=== PATIENT | male | born 1975 | race Caucasian/White ===

== ENCOUNTER → 2017-11-24 12:00 | Outpatient (REF) | payer OTHER, SELFPAY | LOC: LAB 12:00 | PROVIDERS: Visit Provider Nurse Practitioner Family | DX: J01.00 Acute maxillary sinusitis, unspecified (principal); J02.9 Acute pharyngitis, unspecified; R05 Cough | CPT/HCPCS: 88305 ==

== ENCOUNTER 2023-09-07 07:40 | Outpatient (CLI) | payer OTHER, SELFPAY ==
[2023-09-07 19:10] LABS: Alanine Aminotransferase 24 U/L (12-78); Albumin Level 4.4 g/dl (3.5-5.0); Alkaline Phosphatase 71 U/L (38-126); Anion Gap 8.9 mEq/L (5-15); Aspartate Amino Transferase 32 U/L (17-59); Bilirubin,Total 0.3 mg/dl (0.2-1.3); Blood Urea Nitrogen 14 mg/dl (9-20); Carbon Dioxide 29 mmol/L (22.0-30.0); Chloride 103 mmol/L (98-107); Chol/HDL Ratio 2.8 (1-3.5); Cholesterol 171 mg/dl (140-200); Estimated Glomerular Filt Rate 103 ml/min (>60); GFR (African American) 124 ML/MIN (>60); Globulin 2.2 g/dL (1.3-3.2); Glucose 95 mg/dl (74-100); HDL Cholesterol 62 mg/dl (40-60); Potassium 3.9 mmoL/L (3.5-5.1); Sodium 137 mmol/L (136-145); Total Protein,Serum 6.6 g/dl (6.3-8.2); Triglycerides 95 mg/dl (30-150); VLDL Cholesterol 19 mg/dL (0-40)
[2023-09-07 19:16] LABS: Basophils % 0.7 % (0.1-2.0); Eosinophils # 0.1 K/mm3 (0.0-0.4); Eosinophils % 2.1 % (0.1-12.0); Hematocrit 39.4 % (42.0-52.0); Hemoglobin 12.9 g/dL (14.1-18.0); Lymphocytes # 2.3 K/mm3 (0.7-4.5); Lymphocytes % 44.1 % (10-50); Mean Corpuscular HGB Conc 32.8 g/dL (31.8-35.4); Mean Corpuscular Volume 88.6 fl (80-94); Mean Platelet Volume 7.9 fl (7.4-10.4); Monocytes # 0.3 K/mm3 (0.1-1.0); Monocytes % 6.6 % (1.7-9.3); Neutrophils # 2.4 K/mm3 (1.8-7.8); Neutrophils % 46.6 % (37.0-80.0); Platelet Count 208 K/mm3 (142-424); Red Blood Count 4.45 M/mm3 (4.60-6.20); Red Cell Distribution Width 13.6 % (11.5-17.5); White Blood Count 5.2 K/mm3 (4.8-10.8)
[2023-09-07 19:24] LABS: Direct LDL Cholesterol 86.78 mg/dL (100-129)
[2023-09-07 19:43] LABS: Prostate Specific Ag Screen 0.5 ng/ml (0.0-4.0); Thyroid Stimulating Hormone 1.28 uIU/mL (0.465-4.68)
== END 2023-09-07 23:59 ==
LOC: LAB.DROPOF 09-08 07:41
PROVIDERS: PCP Family Medicine; Visit Provider Family Medicine
DX: R05.9 Cough, unspecified (principal); R09.82 Postnasal drip; J34.89 Other specified disorders of nose and nasal sinuses; H92.02 Otalgia, left ear; R68.83 Chills (without fever); Z12.5 Encounter for screening for malignant neoplasm of prostate
CPT/HCPCS: 80053; 80061; 84443; 85025; G0103

== ENCOUNTER 2024-09-26 09:17 | Emergency (ER) | payer OTHER, SELFPAY ==
[2024-09-26] VITALS (9 sets, daily range): BP systolic 156–209; BP diastolic 106–137; PULSE 70–97; RESP 18–24; TEMP 36.8; O2SAT 96–99; BMI 22.0
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
--- NOTE | 2024-09-26 09:35 | PC.NURSE ---
Harjeet Santana, pts. uncle, contacted per pt. request.
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
[2024-09-26] MEDS: FENTANYL 250MCG/5ML VIAL 50 MCG IV ×2 (09:46→10:26)
[2024-09-26 09:48] LABS: Basophils # 0.1 K/mm3 (0-0.2); Basophils % 0.9 % (0.1-2.0); Eosinophils # 0.2 K/mm3 (0.0-0.4); Hematocrit 51.1 % (42.0-52.0); Hemoglobin 17.2 g/dL (14.1-18.0); Lymphocytes # 4.7 K/mm3 (0.7-4.5); Lymphocytes % 57.4 % (10-50); Mean Corpuscular HGB Conc 33.7 g/dL (31.8-35.4); Mean Corpuscular Hemoglobin 29.4 pg (27.0-31.2); Mean Corpuscular Volume 87.2 fl (80-94); Mean Platelet Volume 9.7 fl (7.4-10.4); Monocytes # 0.6 K/mm3 (0.1-1.0); Monocytes % 6.7 % (1.7-9.3); Neutrophils # 2.7 K/mm3 (1.8-7.8); Neutrophils % 32.9 % (37.0-80.0); Platelet Count 352 K/mm3 (142-424); Red Blood Count 5.86 M/mm3 (4.60-6.20); Red Cell Distribution Width 12.4 % (11.5-17.5); White Blood Count 8.2 K/mm3 (4.8-10.8)
[2024-09-26] MEDS: LACTATED RINGERS 1000ML 1,000 ML 999 ML IV (09:51)
[2024-09-26] MEDS: TET/DIPHTH/PERT-ADULT 0.5ML SYRINGE 0.5 ML IM (09:52)
[2024-09-26 09:54] LABS: Alanine Aminotransferase 28 U/L (12-78); Albumin Level 5.4 g/dl (3.5-5.0); Albumin/Globulin Ratio 1.9 (1.1-1.8); Alkaline Phosphatase 80 U/L (38-126); Anion Gap 18.6 mEq/L (5-15); Aspartate Amino Transferase 56 U/L (17-59); Bilirubin,Total 1.2 mg/dl (0.2-1.3); Blood Urea Nitrogen 18 mg/dl (9-20); Calcium 9.9 mg/dl (8.4-10.2); Carbon Dioxide 27 mmol/L (22.0-30.0); Chloride 97 mmol/L (98-107); Creatinine Clearance Estimated 90 mL/min (50-200); Estimated Glomerular Filt Rate 89 ml/min (>60); GFR (African American) 108 ML/MIN (>60); Globulin 2.8 g/dL (1.3-3.2); Glucose 194 mg/dl (74-100); Potassium 4.6 mmoL/L (3.5-5.1); Sodium 138 mmol/L (136-145); Total Protein,Serum 8.2 g/dl (6.3-8.2)
[2024-09-26 10:02] LABS: MANUAL DIFFERENTIAL MANUAL DIFFERENTIAL (MANUAL DIFF)
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
--- NOTE | 2024-09-26 10:10 | PC.NURSE ---
IS SPEAKING TO WON WADE MD AT THIS TIME ABOUT PT TRANSFER AND STATUS OF PT
[2024-09-26 10:14] LABS: Carboxyhemoglobin 0.3 (0.0-5.0)
--- NOTE | 2024-09-26 10:14 | PC.NURSE ---
of transfer center called and states the accepting is and the number for report to the ER is [phone]
[2024-09-26 10:15] LABS: ABG Base Excess 1.7 mmol/L (-2.4-2.3); ABG HCO3 26.6 mmhg (22.0-26.0); ABG PCO2 44.8 mmhg (35.0-45.0); ABG PH 7.39 mmol/L (7.35-7.45)
[2024-09-26 10:16] LABS: ABG Oxygen Saturation 97 % (90-100); Allen's Test acceptable; Oxygen room air %; Source Right Radial
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
[2024-09-26 10:38] LABS: Lymphocytes % 62 % (10-50); Monocytes % 5 % (2-9); Neutrophils % 33 % (42-76); Platelet Estimate Normal; RBC Morphology Normal; Total Cells Counted 100
[2024-09-26 10:39] LABS: HIV Combo NEGATIVE (Negative)
--- NOTE | 2024-09-26 10:39 | PC.NURSE ---
report given to Martine VALERO
[2024-09-26 10:47] LABS: Hepatitis C Ab Qual. W/ RFX NEGATIVE (Negative)
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
== END 2024-09-26 11:31 ==
PROVIDERS: Emergency Provider Emergency Medicine; PCP Family Medicine
DX: T21.33XA Burn of third degree of upper back, initial encounter (principal); T21.23XA Burn of second degree of upper back, initial encounter; T22.041A Burn of unspecified degree of right axilla, initial encounter; T22.042A Burn of unspecified degree of left axilla, initial encounter; T30.0 Burn of unspecified body region, unspecified degree; X16.XXXA Contact with hot heating appliances, radiators and pipes, initial encounter; Y93.89 Activity, other specified; Y92.009 Unspecified place in unspecified non-institutional (private) residence as the place of occurrence of the external cause; Z23 Encounter for immunization
CPT/HCPCS: 71045; 80053; 82375; 82803; 85007; 85025; 85027; 86803; 87389; 90471; 90715; 96361; 96374; 96375; 99285; J3010; J7120